=== PATIENT | female | born 1990 | race Two or more races ===

== ENCOUNTER 2021-10-29 05:30 | Inpatient (IN) | payer MEDICAID, OTHER, SELFPAY ==
[2021-10-30] MEDS ORDERED: Oxytocin 10 UNITS/ML VIAL ONE (04:23)
[2021-10-30] MEDS ORDERED: Lidocaine 1% (PF) 30 ML VIAL ONE (04:23)
[2021-10-30] MEDS ORDERED: Ondansetron PF 4 MG/2 ML Vial IVP PRN ×3 (04:37→10:47)
[2021-10-30] MEDS ORDERED: Promethazine HCl 25 MG/ML VIAL IM PRN ×3 (04:37→10:47)
[2021-10-30] MEDS ORDERED: hydrALAZINE 20 MG/ML VIAL SLOW IVP PRN ×4 (04:37→10:47)
[2021-10-30 04:38] VITALS: BMI 29.0
[2021-10-30 05:15] LABS: Hemoglobin 13.9 g/dL (12.0-15.5); Mean Corpuscular HGB CONC 33.9 g/dL (32.0-36.0); Mean Corpuscular Hemoglobin 31.4 pg (27.0-33.0); Mean Corpuscular Volume 92.6 fl (81.6-98.3); Mean Platelet Volume 11.1 fl (7.4-10.4); Platelet Count 235 10x3/uL (150-450); RBC Distribution Width 13.6 % (11.5-14.5); Red Blood Cell (RBC) Count 4.43 10x6/uL (3.90-5.03); White Blood Cell (WBC) Count 12.6 10x3/uL (3.5-10.5)
[2021-10-30] MEDS ORDERED: Lidocaine 1% (PF) 30 ML VIAL SC PRN (05:23)
[2021-10-30] MEDS ORDERED: Ibuprofen 800 MG TAB PO PRN (05:23)
[2021-10-30] MEDS ORDERED: Acetaminophen 500 MG TAB PO PRN (05:23)
[2021-10-30] MEDS ORDERED: Carboprost 250 MCG/ML AMP IM PRN (05:23)
[2021-10-30] MEDS ORDERED: Methylergonovine 0.2 MG/ML VIAL IM PRN (05:23)
[2021-10-30] MEDS ORDERED: HYDROcodone/Acetaminophen 5/325 mg Tablet PO PRN ×3 (05:23→10:47)
[2021-10-30] MEDS ORDERED: Diphenoxylate HCl/Atropine Tablet PO PRN (05:23)
[2021-10-30] MEDS ORDERED: Butorphanol Tartrate 1 MG/ML VIAL SLOW IVP PRN (05:23)
[2021-10-30] MEDS ORDERED: NS w/ Oxytocin 30 units 500 ML IV SCH ×2 (05:23)
[2021-10-30] MEDS ORDERED: Misoprostol 200 MCG TAB PR PRN (05:23)
[2021-10-30 06:03] LABS: Syphilis Antibody Nonreactive (Nonreactive); Syphilis Antibody Index 0.07 S/CO (<1.00 Non-Reactive)
[2021-10-30 06:04] LABS: Hep B Surf Ag Non-Reactive S/CO (NonReactive)
[2021-10-30 06:09] LABS: HBSAg Index 0.16 S/CO (0-0.99)
[2021-10-30] MEDS: Lactated Ringer's 1,000 ML IV SCH ×2 (06:43→07:20)
[2021-10-30 07:51] LABS: SARS-CoV-2 NAA Rapid Test Not Detected (NotDetected)
[2021-10-30] MEDS ORDERED: Lanolin Ointment 7 GM TUBE TOP PRN (10:47)
[2021-10-30] MEDS ORDERED: Boostrix 0.5 ML (Tdap) VIAL IM ONE (10:47)
[2021-10-30] MEDS ORDERED: Bisacodyl 10 MG SUPP PR PRN (10:47)
[2021-10-30] MEDS ORDERED: Preparation H Ointment 28 GM TUBE PR PRN (10:47)
[2021-10-30] MEDS ORDERED: Milk Of Magnesia 30 ML UDCUP PO PRN (10:47)
[2021-10-30] MEDS ORDERED: diphenhydrAMINE 25 MG CAP PO PRN (10:47)
[2021-10-30] MEDS ORDERED: Benzocaine-Menthol 82.5 ML CAN TOP PRN (10:47)
[2021-10-30] MEDS: Ibuprofen 800 MG TAB PO SCH ×2 (13:53→21:07)
[2021-10-30] MEDS: Ferrous Sulfate 325 MG TAB PO SCH (14:57)
[2021-10-30] MEDS: Docusate 100 MG CAP PO SCH (21:06)
[2021-10-31] MEDS: Ibuprofen 800 MG TAB PO SCH ×2 (05:15→14:00)
[2021-10-31 06:07] VITALS: TEMP 97.6
[2021-10-31] MEDS: Ferrous Sulfate 325 MG TAB PO SCH (08:08)
[2021-10-31 08:13] VITALS: BP 115/69
[2021-10-31] MEDS ORDERED: Prenatal Vitamin 1 TAB PO SCH (09:00)
[2021-10-31] MEDS: Docusate 100 MG CAP PO SCH (09:07)
== END 2021-10-31 15:05 | disposition home or self-care (01) | DRG 807 ==
LOC: CSHLD 10-30 03:58 → CSHPP 10-30 06:20
PROVIDERS: ADMIT Student in an Organized Health Care Education/Training Program; ATTEND Student in an Organized Health Care Education/Training Program
PROC: 10E0XZZ Delivery of Products of Conception, External Approach (ICD-10-PCS; principal; 2021-10-30)
DX: O62.3 Precipitate labor (principal); Z37.0 Single live birth; Z3A.40 40 weeks gestation of pregnancy; Z20.822 Contact with and (suspected) exposure to COVID-19; O71.82 Other specified trauma to perineum and vulva
CPT/HCPCS: 36415; 85027; 86780; 86850; 86900; 86901; 87340; J2590; U0002